=== PATIENT | female | born 1985 | race Caucasian/White ===

== ENCOUNTER 2020-08-01 13:56 | Inpatient (IN) | payer BC, SELFPAY ==
[2020-08-01] VITALS (7 sets, daily range): BP systolic 113–122; BP diastolic 69–82
[2020-08-01 17:11] LABS: HEMATOCRIT 39.5 % (36.0-47.0); MEAN CORPUSCULAR HEMOGLOBIN 28.5 pg (27.0-33.0); MEAN CORPUSCULAR HGB CONC 32.9 g/dl (32.0-36.5); MEAN CORPUSCULAR VOLUME 86.6 fl (80.0-96.0); RED BLOOD COUNT 4.56 10^6/uL (4.00-5.40); WHITE BLOOD COUNT 5.6 10^3/uL (4.0-10.0)
[2020-08-01 17:18] LABS: INR 1.09; PROTHROMBIN TIME 14.4 SECONDS (12.5-14.3)
[2020-08-01 17:27] LABS: PLATELET COUNT, AUTOMATED 1 10^3/uL (150-450)
[2020-08-01 17:35] LABS: ALBUMIN 4.3 GM/DL (3.2-5.2); ALT/SGPT 41 U/L (12-78); BILIRUBIN,TOTAL 0.4 MG/DL (0.2-1.0); BLOOD UREA NITROGEN 12 MG/DL (7-18); CARBON DIOXIDE LEVEL 27 MEQ/L (21-32); CHLORIDE LEVEL 106 MEQ/L (98-107); CREATININE FOR GFR 0.76 MG/DL (0.55-1.30); GLOMERULAR FILTRATION RATE > 60.0 (>60); GLUCOSE, FASTING 165 MG/DL (70-100); POTASSIUM SERUM 3.5 MEQ/L (3.5-5.1); SODIUM LEVEL 139 MEQ/L (136-145); TOTAL PROTEIN 7.4 GM/DL (6.4-8.2)
--- NOTE | 2020-08-01 18:01 | HPEPDOC ---
General Date of Admission Aug 01, 2020 at 16:13 Date of Service: Aug 01, 2020 Chief Complaint The patient is a 35-year-old female admitted with a reason for visit of ITP. Source: Patient Timing/Duration: Day(s) Severity: Mild, Moderate History of Present Illness Patient is 35 years old female with past medical history of anemia presented to hospital with multiple petechia. Patient was transferred from [facility] way she was found to have platelets of 1, hemoglobin 13.2. Patient denied any respiratory infection, shortness of breath, chest pain, blood in the stool or urine, diarrhea or dysuria. Patient stated that sometimes she has a nosebleed. Menses is regular and not excessive. I contacted she recommended to start steroids, IV IgG and platelet transfusion. Allergies Coded Allergies: No Known Allergies (Unverified , 08/01/20) Past Medical History Medical History Anemia unknown type Family History Patient stated that his son had sometimes petechia. Her sister has history of purpura unknown type Social History * Smoker: Denies Alcohol: Denies Drugs: denies A-FIB/CHADSVASC A-FIB History Current/History of A-Fib/PAF?: No Current PO Anticoag Therapy: No Review of Systems Constitutional: Denies: Chills, Fever Eyes: Denies: Pain, Vision change ENT: Denies: Head Aches Skin: Reports: Other (petechia) Pulmonary: Denies: Dyspnea Cardiovascular: Denies: Chest Pain Gastrointestinal: Denies: Nausea, Vomiting Genitourinary: Denies: Dysuria Hematologic: Denies: Bruising Endocrine: Denies: Polydipsia Musculoskeletal: Denies: Neck Pain, Back Pain Neurological: Denies: Weakness Psych: Reports: Mood Normal Physical Examination General Exam: Positive: Alert, Cooperative Eye Exam: Positive: PERRLA ENT Exam: Positive: Atraumatic Neck Exam: Positive: Supple; Negative: JVD, thyromegaly Chest Exam: Positive: Clear to auscultation Heart Exam: Positive: Rate Normal Telemetry: Positive: No significant arrhythmia Abdomen Exam: Negative: Normal bowel sounds Extremity Exam: Negative: Clubbing Skin Exam: Positive: Other skin issue (petechia) Neuro Exam: Positive: Normal Gait, Strength at 5/5 X4 ext Psych Exam: Positive: Mental status NL Vital Signs Vital Signs Date Time Temp Pulse Resp B/P (MAP) Pulse Ox O2 Delivery O2 Flow Rate FiO2 08/01/20 16:30 99.1 95 16 122/78 (93) 100 Room Air Laboratory Data Labs 24H Laboratory Tests 2 08/01/20 16:43: Nucleated Red Blood Cells % (auto) 0.0, Immature Platelet Fraction 28.9H, Prothrombin Time 14.4H, Prothromb Time International Ratio 1.09, Anion Gap 6L, Glomerular Filtration Rate > 60.0, Lactic Acid Level 1.0, Calcium Level 9.0, Tot al Bilirubin 0.4, Aspartate Amino Transf (AST/SGOT) 24, Alanine Aminotransferase (ALT/SGPT) 41, Alkaline Phosphatase 52, Total Protein 7.4, Albumin 4.3, Albumin/Globulin Ratio 1.4 CBC/BMP Laboratory Tests 08/01/20 16:43 Assessment/Plan Patient is 35 years old female with past medical history of anemia presented to hospital with multiple petechia. Patient was transferred from [facility] way she was found to have platelets of 1, hemoglobin 13.2. Patient denied any respiratory infection, shortness of breath, chest pain, blood in the stool or urine, diarrhea or dysuria. Patient stated that sometimes she has a nosebleed. Menses is regular and not excessive. I contacted she recommended to start steroids, IV IgG and platelet transfusion. Problems (1) Acute ITP Status: Acute Problem Text: Appreciate/agree with member services representative consult Platelets transfusion 4 units EDTA platelets Peripheral smear Abdominal ultrasound HIV, hepatitis panel Dexamethasone by mouth 40 mg for 4 days IgG IV Plan / VTE VTE Prophylaxis Ordered?: No VTE Exclusion Pharmacological: Bleeding Risk KWAN CARRASCO DO Aug 01, 2020 18:01
[2020-08-01 18:38] LABS: PLTBLUE- EDTA FREE CALC 1 K/mm3 (172-450)
[2020-08-01 18:39] LABS: PLTBLUE- EDTA FREE MACHINE 1 10^3/uL (172-450)
--- NOTE | 2020-08-01 18:53 | CR.PDOC ---
General Date of Consultation: Aug 01, 2020 Referring Provider: KWAN CARRASCO DO Primary Care Physician: Cj Bundy MD Attending Physician: DC MAIER MD Consultation REASON FOR CONSULTATION/CHIEF COMPLAINT: Profound thrombocytopenia HISTORY OF PRESENT ILLNESS: 35-year-old with past medical history of anemia intermittently on oral iron who noticed petechiae on lower extremities and upper extremities 2 days ago. Denies fever, chills, cough, diarrhea, urinary symptoms. Has always had heavy menstrual periods. She was seen in [facility]. Platelet count noted to be less than 10. Transferred to [facility] for further management. ALLERGIES: Please see below. HOME MEDICATIONS: Please see below. PAST MEDICAL HISTORY: Anemia since childhood FAMILY HISTORY: Maternal grandmother had lung cancer. Her sister had HUS-TTP in childhood. SOCIAL HISTORY: Former smoker, having smoked for 7 years up to 2008. Does not drink alcohol. . Has 2 children. REVIEW OF SYSTEMS: CONSTITUTIONAL: No fever, no chills, no weight loss. Good appetite. HEENT: No eye pain. She reports normal headaches. No changes in eyesight. CARDIOVASCULAR: No chest pain. No shortness of breath. No edema. RESPIRATORY: No cough. Note pleuritic chest pain. No shortness of breath. GENITOURINARY: No dysuria. No frequency. MUSCULOSKELETAL: No muscle or joint achiness. No bone pains. GASTROINTESTINAL: No nausea. No vomiting. No abdominal pains. No diarrhea. No constipation, [place] no rectal bleeding. SKIN: Petechiae. NEUROLOGICAL: No confusion. HEMATOLOGIC/LYMPHATIC: Reports heavy menstrual cycles. Recent petechiae. PHYSICAL EXAMINATION: VITAL SIGNS: Please see below. GENERAL APPEARANCE: Alert, lying comfortably in bed, not in distress, answered questions appropriately. HEENT: Atraumatic. Moist oral mucosa. No bleeding in gums or oral mucosa. RESPIRATORY: Lungs are clear. No rales, rhonchi no least.. CARDIOVASCULAR: S1, S2 regular. ABDOMEN: soft, nontender, no guarding. Positive bowel sounds. No hepatosplenomegaly.TREMITIES: . NEUROLOGICAL: Alert, oriented 3. PSYCHIATRIC: No anxiety. LABORATORY DATA: Please see below. ASSESSMENT/PLAN: 35-year-old with profound thrombocytopenia, likely ITP. WBC count and hemoglobin level normal. No renal insufficiency. Abdominal ultrasound to check for splenomegaly. Peripheral smear review pending. EDTA free platelet count pending. HIV and Hepatitis C antibody testing results pending at this time. Would also check for JAVIER with next blood drawing. Dexamethasone 40 mg by mouth daily for 4 days started today. IVIG 1 g/kg for 2 days. Platelet transfusion for platelet count less than 10. Continue monitoring platelet count daily. Thank you for referring Ms. Veronique Gutierrez. Vital Signs/I&O Vital Signs Date Time Temp Pulse Resp B/P (MAP) Pulse Ox O2 Delivery O2 Flow Rate FiO2 08/01/20 16:30 99.1 95 16 122/78 (93) 100 Room Air Laboratory Data Labs 24H Laboratory Tests 2 08/01/20 16:43: Nucleated Red Blood Cells % (auto) 0.0, Immature Platelet Fraction 28.9H, Prothrombin Time 14.4H, Prothromb Time International Ratio 1.09, Anion Gap 6L, Glomerular Filtration Rate > 60.0, Lactic Acid Level 1.0, Calcium Level 9.0, Total Bilirubin 0.4, Aspartate Amino Transf (AST/SGOT) 24, Alanine Aminotransferase (ALT/SGPT) 41, Alkaline Phosphatase 52, Total Protein 7.4, Albumin 4.3, Albumin/Globulin Ratio 1.4 08/01/20 18:01: Differential Slide Review Report, Peripheral Blood Smear Path Consult PERIPHERAL SMEAR CBC/BMP Laboratory Tests 08/01/20 16:43 Allergies Coded Allergies: No Known Allergies (Unverified , 08/01/20) MATT GUILLEN MD Aug 01, 2020 18:53
[2020-08-01 19:41] LABS: HEPATITIS A ANTIBODY IGM NEGATIVE (NEGATIVE); HEPATITIS B CORE ANTIBODY IGM NEGATIVE (NEGATIVE); HEPATITIS B SURFACE ANTIGEN NEGATIVE (NEGATIVE); HEPATITIS C VIRUS ABY INDEX < 0.0 INDEX (<0.8); HIV 1&2 SCREEN CENTAUR NEGATIVE (NEGATIVE)
[2020-08-01] MEDS: IMMUNE GLOBULIN 10% 10 GM, IMMUNE GLOBULIN 10% 40 GM in IV 1 EA IV SCH (19:43)
[2020-08-01] MEDS: ACETAMINOPHEN TAB 650MG DOSE (2X325MG) PO PRN (19:46)
[2020-08-01] MEDS: dexameTHASONE 20MG/5ML VIAL (J1100 PER 1MG) IV SCH (19:46)
[2020-08-01 20:59] LABS: APPEARANCE, URINE MANUAL HAZY (CLEAR); BILIRUBIN, URINE MANUAL NEGATIVE (NEGATIVE); COLOR, URINE MANUAL YELLOW (YELLOW); KETONE, URINE MANUAL NEGATIVE (NEGATIVE); LEUKOCYTE ESTERASE, URINE MAN NEGATIVE (NEGATIVE); NITRITE, URINE MANUAL NEGATIVE (NEGATIVE); PROTEIN, URINE MANUAL NEGATIVE (NEGATIVE); SPECIFIC GRAVITY,URINE MANUAL 1.015 (1.002-1.035); UROBILINOGEN, URINE MANUAL NORMAL (NORMAL)
[2020-08-01 21:00] LABS: BLOOD URINE MANUAL POSITIVE (NEGATIVE)
[2020-08-01 21:01] LABS: GLUCOSE, URINE (UA) MANUAL TRACE(50 MG/DL) mg/dL (NEGATIVE)
[2020-08-01 21:12] LABS: SQUAMOUS EPITHELIAL CELL URINE SMALL AMOUNT /hpf (SMALL AMT)
[2020-08-01 21:14] LABS: AMORPHOUS SEDIMENT, URINE LARGE AMOUNT (NEGATIVE); BACTERIA, URINE NONE SEEN; HYALINE CAST, URINE NONE SEEN /lpf (0-1)
[2020-08-02] VITALS (23 sets, daily range): BP systolic 107–125; BP diastolic 16–78
[2020-08-02] MEDS: ACETAMINOPHEN TAB 650MG DOSE (2X325MG) PO PRN ×2 (02:20→06:37)
--- NOTE | 2020-08-02 08:03 | REP ---
INDICATION: trombocytopenia TECHNIQUE: Real time B-mode knox scale ultrasound examination using curved array transducer. FINDINGS: Liver, spleen, and pancreas are normal in contour, size, echogenicity, and overall appearance. No focal hepatic, splenic or pancreatic lesions are identified. Splenic index equals 500. Gallbladder is normal without gallstones, wall thickening, or pericholecystic fluid. No biliary ductal dilatation is appreciated and the common bile duct measures 3.0 mm diameter. The bilateral kidneys are normal in reniform shape without hydronephrosis or obvious abnormality. Right kidney measures 11.4 x 5.1 x 3.7 cm. Left kidney measures 10.9 x 4.9 x 6.0 cm. Visualized abdominal aorta appears normal and measures 1.4 cm maximal diameter. No obvious ascites. IMPRESSION: Normal complete abdominal ultrasound. <Electronically signed by Carlo Melendez > 08/02/20 [id number]
[2020-08-02 08:38] LABS: HEMOGLOBIN 10.5 g/dl (12.0-15.5); MEAN CORPUSCULAR HEMOGLOBIN 29.1 pg (27.0-33.0); MEAN CORPUSCULAR HGB CONC 33.9 g/dl (32.0-36.5); MEAN CORPUSCULAR VOLUME 85.9 fl (80.0-96.0); RED BLOOD COUNT 3.61 10^6/uL (4.00-5.40); WHITE BLOOD COUNT 12.1 10^3/uL (4.0-10.0)
[2020-08-02 08:41] LABS: PLATELET COUNT, AUTOMATED 44 10^3/uL (150-450)
[2020-08-02] MEDS: OMEPRAZOLE 20 MG CAP PO SCH (09:00)
[2020-08-02 09:10] LABS: ALBUMIN 3.4 GM/DL (3.2-5.2); ALT/SGPT 111 U/L (12-78); BILIRUBIN,TOTAL 0.3 MG/DL (0.2-1.0); BLOOD UREA NITROGEN 10 MG/DL (7-18); CALCIUM LEVEL 8.7 MG/DL (8.5-10.1); CARBON DIOXIDE LEVEL 23 MEQ/L (21-32); CHLORIDE LEVEL 106 MEQ/L (98-107); CREATININE FOR GFR 0.79 MG/DL (0.55-1.30); GLOMERULAR FILTRATION RATE > 60.0 (>60); GLUCOSE, FASTING 230 MG/DL (70-100); MAGNESIUM LEVEL 1.7 MG/DL (1.8-2.4); POTASSIUM SERUM 3.3 MEQ/L (3.5-5.1); SODIUM LEVEL 139 MEQ/L (136-145); TOTAL PROTEIN 7.8 GM/DL (6.4-8.2)
[2020-08-02] MEDS: dexameTHASONE 20MG/5ML VIAL (J1100 PER 1MG) IV SCH (09:37)
--- NOTE | 2020-08-02 11:31 | IPNPDOC ---
Text Note Date of Service The patient was seen on 08/02/20. NOTE Subjective: No any acute events overnight. Objective: GENERAL APPEARANCE: NAD HEENT: no scleral icterus, no JVD, EOMI CARDIOVASCULAR: S1S2 LUNGS: CTA ABDOMEN: soft & not tender w palpitation MUSCULOSKELETAL: no cyanosis, no swelling INTEGUMENT: Multiple petechia of lower extremities and on the back NEUROLOGICAL: cranial nerve function from 2-12 intact intact, follows commands, speech not dysarthric Assessment/Plan Patient is 35 years old female with past medical history of anemia presented to hospital with multiple petechia. Patient was transferred from [facility] way she was found to have platelets of 1, hemoglobin 13.2. Patient denied any respiratory infection, shortness of breath, chest pain, blood in the stool or urine, diarrhea or dysuria. Patient stated that sometimes she has a nosebleed. Menses is regular and not excessive. I contacted Dr. Crespo she recommended to start steroids, IV IgG and platelet transfusion. Problems (1) Acute ITP Improved, today platelets count 44 Dr. Crespo follows her Platelets transfusion 4 units on 08/01/20 EDTA platelets pending Peripheral smear showed Peripheral blood, smear review: Marked thrombocytopenia with rare large platelets. Normocytic normochromic red blood cells. Leukocytes morphologically unremark able. No blasts or atypical lymphocytes. Abdominal ultrasound unremarkable HIV, hepatitis panel negative Dexamethasone by mouth 40 mg for 4 days IgG IV for 2 days VS,Fishbone, I+O VS, Fishbone, I+O Laboratory Tests 08/01/20 16:43 08/02/20 08:25 Vital Signs Date Time Temp Pulse Resp B/P (MAP) Pulse Ox O2 Delivery O2 Flow Rate FiO2 08/02/20 07:37 97.8 94 18 107/68 98 Room Air I&O- Last 24 Hours up to 6 AM 08/02/20 05:59 Intake Total 700 ml Output Total 500 ml Balance 200 ml KWAN CARRASCO DO Aug 02, 2020 11:31
[2020-08-02] MEDS ORDERED: traMADol 50 MG TAB PO PRN (15:15)
[2020-08-02] MEDS: IMMUNE GLOBULIN 10% 10 GM, IMMUNE GLOBULIN 10% 40 GM in IV 1 EA IV SCH (17:33)
[2020-08-02] MEDS: IBUPROFEN 400MG TAB PO PRN (18:03)
[2020-08-03 00:05] VITALS: BP 115/79
[2020-08-03 00:20] VITALS: BP 116/80
[2020-08-03 06:00] VITALS: BP 110/66
[2020-08-03 07:10] LABS: EOS % 0.2 % (0.0-3.0); HEMATOCRIT 30.5 % (36.0-47.0); HEMOGLOBIN 9.9 g/dl (12.0-15.5); LYMPH # 0.7 10^3/uL (1.5-5.0); LYMPH % 11.8 % (24.0-44.0); MEAN CORPUSCULAR HEMOGLOBIN 28.7 pg (27.0-33.0); MEAN CORPUSCULAR HGB CONC 32.5 g/dl (32.0-36.5); MEAN CORPUSCULAR VOLUME 88.4 fl (80.0-96.0); MONO # 0.4 10^3/uL (0.0-0.8); MONO % 6.6 % (0.0-5.0); NEUTROPHILS # 4.8 10^3/uL (1.5-8.5); NEUTROPHILS % 80.7 % (36.0-66.0); RED BLOOD COUNT 3.45 10^6/uL (4.00-5.40); WHITE BLOOD COUNT 5.9 10^3/uL (4.0-10.0)
[2020-08-03 07:13] LABS: PLATELET COUNT, AUTOMATED 51 10^3/uL (150-450)
[2020-08-03 07:33] LABS: ALT/SGPT 84 U/L (12-78); BILIRUBIN,TOTAL 0.3 MG/DL (0.2-1.0); BLOOD UREA NITROGEN 15 MG/DL (7-18); CALCIUM LEVEL 8.4 MG/DL (8.5-10.1); CARBON DIOXIDE LEVEL 26 MEQ/L (21-32); CHLORIDE LEVEL 108 MEQ/L (98-107); CREATININE FOR GFR 0.64 MG/DL (0.55-1.30); FERRITIN 21 NG/ML (8-252); GLOMERULAR FILTRATION RATE > 60.0 (>60); GLUCOSE, FASTING 87 MG/DL (70-100); IRON (FE) 46 UG/DL (50-170); MAGNESIUM LEVEL 1.9 MG/DL (1.8-2.4); PERCENT SATURATION 17.8 % (13.2-45.0); POTASSIUM SERUM 3.7 MEQ/L (3.5-5.1); SODIUM LEVEL 139 MEQ/L (136-145); TOTAL IRON BINDING CAPACITY 259 UG/DL (250-450); TOTAL PROTEIN 8.3 GM/DL (6.4-8.2)
[2020-08-03] MEDS: OMEPRAZOLE 20 MG CAP PO SCH (09:00)
[2020-08-03] MEDS: IBUPROFEN 400MG TAB PO PRN (11:03)
[2020-08-03] MEDS: dexameTHASONE 20MG/5ML VIAL (J1100 PER 1MG) IV SCH (11:03)
[2020-08-03] MEDS ORDERED: ACET1TAB55 PO (12:02)
[2020-08-03] MEDS ORDERED: OMEP-218 PO (12:02)
[2020-08-03] MEDS ORDERED: PRED20TA PO (12:02)
[2020-08-03] MEDS ORDERED: DEXA4TA PO (12:45)
--- NOTE | 2020-08-03 16:13 | DS.PDOC ---
Discharge Summary General Date of Admission Aug 01, 2020 at 16:13 Date of Discharge 08/03/20 Discharge Summary PROCEDURES PERFORMED DURING STAY: [None]. ADMITTING DIAGNOSES: Acute ITP DISCHARGE DIAGNOSES: Acute ITP COMPLICATIONS/CHIEF COMPLAINT: Itp Fup. HISTORY OF PRESENT ILLNESS:Patient is 35 years old female with past medical history of anemia presented to hospital with multiple petechia. Patient was transferred from [facility] way she was found to have platelets of 1, hemoglobin 13.2. Patient denied any respiratory infection, shortness of breath, chest pain, blood in the stool or urine, diarrhea or dysuria. Patient stated t hat sometimes she has a nosebleed. Menses is regular and not excessive. I contacted Dr. Crespo she recommended to start steroids, IV IgG and platelet transfusion. HOSPITAL COURSE: During the hospital stay following issue addressed (1) Acute ITP Improved, today platelets count 44 Dr. Crespo follows her Platelets transfusion 4 units on 08/01/20 EDTA platelets pending Peripheral smear showed Peripheral blood, smear review: Marked thrombocytopenia with rare large platelets. Normocytic normochromic red blood cells. Leukocytes morphologically unremarkable. No blasts or atypical lymphocytes. Abdominal ultrasound unremarkable HIV, hepatitis panel negative Dexamethasone by mouth 40 mg for 4 days IgG IV for 2 days On second day platelets count became 51 DISCHARGE MEDICATIONS: Please see below. ALLERGIES: Please see below. PHYSICAL EXAMINATION ON DISCHARGE: VITAL SIGNS: Please see below. GENERAL APPEARANCE: NAD HEENT: no scleral icterus, no JVD, EOMI CARDIOVASCULAR: S1S2 LUNGS: CTA ABDOMEN: soft & not tender w palpitation MUSCULOSKELETAL: no cyanosis, no swelling INTEGUMENT: Multiple petechia of lower extremities and on the back NEUROLOGICAL: cranial nerve function from 2-12 intact intact, follows commands, speech not dysarthric LABORATORY DATA: Please see below. PROGNOSIS: Good ACTIVITY: [As tolerated]. DIET: Regular DISPOSITION: 01 Home, Self-Care. DISCHARGE INSTRUCTIONS: 1. . ITEMS TO FOLLOWUP ON ON OUTPATIENT: Follow-up in 2-[address] Crespo DISCHARGE CONDITION: [Stable]. TIME SPENT ON DISCHARGE: Greater [id number]. Vital Signs/I&Os Vital Signs Date Time Temp Pulse Resp B/P (MAP) Pulse Ox O2 Delivery O2 Flow Rate FiO2 08/03/20 06:00 97.2 77 17 110/66 (81) 99 Room Air I&O- Last 24 Hours up to 6 AM 08/03/20 06:00 Intake Total 2572 ml Output Total 2825 ml Balance -253 ml Laboratory Data Labs 24H Laboratory Tests 2 08/03/20 06:51: Immature Granulocyte % (Auto) 0.7, Neutrophils (%) (Auto) 80.7H, Lymphocytes (%) (Auto) 11.8L, Monocytes (%) (Auto) 6.6H, Eosinophils (%) (Auto) 0.2, Basophils (%) (Auto) 0.0, Neutrophils # (Auto) 4.8, Lymphocytes # (Auto) 0.7L, Monocytes # (Auto) 0.4, Eosinophils # (Auto) 0.0, Basophils # (Auto) 0.0, Nucleated Red Blood Cells % (auto) 0.0, Immature Platelet Fraction 14.6H, Anion Gap 5L, Glomerular Filtration Rate > 60.0, Calcium Level 8.4L, Magnesium Level 1.9, Iron Level 46L, Total Iron Binding Capacity 259, Transferrin % Saturation 17.8, Ferritin 21, Total Bilirubin 0.3, Aspartate Amino Transf (AST/SGOT) 19, Alanine Aminotransferase (ALT/SGPT) 84H, Alkaline Phosphatase 35L, Total Protein 8.3H, Albumin 3.0L, Albumin/Globulin Ratio 0.6L CBC/BMP Laboratory Tests 08/03/20 06:51 Discharge Medications Scheduled Dexamethasone (Dexamethasone) 4 Mg Tablet, 40 TAB PO DAILY Omeprazole (Omeprazole) 20 Mg Capsule.dr, 20 MG PO DAILY Scheduled PRN Acetaminophen (Acetaminophen) 325 Mg Tablet, 650 MG PO Q4H PRN for PAIN OR FEVER Allergies Coded Allergies: No Known Allergies (Unverified , 08/01/20) KWAN CARRASCO DO Aug 03, 2020 16:13
[2020-08-03 23:08] LABS: ANA (HEP2) Negative (.)
== END 2020-08-03 13:19 | disposition home or self-care (01) | DRG 661 ==
LOC: M MSPAV 16:13
PROVIDERS: ADMIT General Practice; ATTEND Internal Medicine
PROC: 30233R1 Transfusion of Nonautologous Platelets into Peripheral Vein, Percutaneous Approach (ICD-10-PCS; principal; 2020-08-02)
DX: D69.3 Immune thrombocytopenic purpura (principal); Z87.891 Personal history of nicotine dependence